=== PATIENT | male | born 1995 | race African-American/Black ===

== ENCOUNTER 2019-10-23 20:38 | Emergency (ER) | payer OTHER ==
[2019-10-23 20:44] VITALS: BMI 26.6
--- NOTE | 2019-10-23 20:50 | PDOC ---
Rapid Medical Evaluation Chief Complaint: Psychiatric Time Seen by Provider: 10/23/19 20:44 Medical Evaluation: Allergies Allergy/AdvReac Type Severity Reaction Status Date / Time No Known Allergies Allergy Verified 10/23/19 20:44 Vital Signs Temp Pulse Resp BP Pulse Ox 98.8 F 105 H 20 146/78 100 10/23/19 20:41 10/23/19 20:41 10/23/19 20:41 10/23/19 20:41 10/23/19 20:41 10/23/19 20:45 24 year old male c/o shortness of breath " i feel deana im going to pass out" reports similar symptoms for > 1 month. had an ekg at [facility]; patient alert ox3. A: near syncope?shortness of breath? P: ekg chest xray 10/23/19 20:51 10/23/19 20:53 Discharge Disposition - Diagnosis Shortness of breath, Near syncope - Referrals - Patient Instructions - Post Discharge Activity
--- NOTE | 2019-10-23 22:07 | PDOC ---
Attending Attestation - Resident Resident Name: Yuri Kent - ED Attending Attestation I have performed the following: I have examined & evaluated the patient, The case was reviewed & discussed with the resident, I agree w/resident's findings & plan - HPI HPI: 10/23/19 23:32 see resident hpi - Physicial Exam PE: 10/23/19 23:36 see resident exam - Medical Decision Making 10/23/19 23:36 24-year-old male with history of chest fluttering and near syncope Plan for labs including d-dimer EKG did show a sinus tachycardia on arrival with no delta waves and no acute ST segment elevations Following work-up plan for exercise restrictions and prompt cardiology follow-up Discharge - Discharge Information Problems reviewed: Yes Clinical Impression/Diagnosis: Shortness of breath, Near syncope, Palpitations - Follow up/Referral Referrals: Winnie Florez [Primary Care Provider] - - Patient Discharge Instructions - Post Discharge Activity
[2019-10-23] MEDS ORDERED: SODIUM CHLORIDE 0.9% 500 ML INFUS.BAG IV ONE (22:49)
--- NOTE | 2019-10-23 23:17 | PDOC ---
History of Present Illness - General Chief Complaint: Shortness of Breath Stated Complaint: DIFFICULTY BREATHING Time Seen by Provider: 10/23/19 20:44 History Source: Patient Exam Limitations: No Limitations - History of Present Illness Initial Comments: 10/23/19 23:20 24yo otherwise health male p/w feeling like he is going to pass out. Happened 3 months ago, saw PCP, got EKG which was reportedly normal, but no explanation. Since then, has had episodes of this feeling, lasting 10-15 minutes, associated with SOB, "flutter" feeling in chest, flushed. No LOC. No association with standing up. States he lost consciousness for a few seconds after a similar episode 7 years prior. ROS otherwise negative. Denies stressors or anxiety. PMH/PSH: none Meds: none Allergies: none Tob:none Etoh: none Rec drugs:none PCP: in [place] [facility] GENERAL/CONSTITUTIONAL: No fever or chills. No weakness. HEAD, EYES, EARS, NOSE AND THROAT: No change in vision. No ear pain or discharge. No sore throat. CARDIOVASCULAR: No chest pain. +shortness of breath RESPIRATORY: No cough, wheezing, or hemoptysis. GASTROINTESTINAL: No nausea, vomiting, diarrhea or constipation. GENITOURINARY: No dysuria, frequency, or change in urination. MUSCULOSKELETAL: No joint or muscle swelling or pain. No neck or back pain. SKIN: No rash NEUROLOGIC: No headache, vertigo, loss of consciousness, or change in strength/sensation. ENDOCRINE: No increased thirst. No abnormal weight change HEMATOLOGIC/LYMPHATIC: No anemia, easy bleeding, or history of blood clots. ALLERGIC/IMMUNOLOGIC: No hives or skin allergy. PE GENERAL: Awake, alert, and fully oriented, in no acute distress HEAD: No signs of trauma, normocephalic, atraumatic EYES: PERRLA, EOMI, sclera anicteric, conjunctiva clear ENT: hearing grossly normal, nares patent, oropharynx clear without exudates. Moist mucosa NECK: Normal ROM, supple, no lymphadenopathy, JVD, or masses LUNGS: No distress, speaks full sentences, clear to auscultation bilaterally HEART: Regular rate and rhythm, normal S1 and S2, no murmurs, rubs or gallops, peripheral pulses normal and equal bilaterally. ABDOMEN: Soft, nontender, normoactive bowel sounds. No guarding, no rebound. No masses EXTREMITIES : Normal inspection, Normal range of motion, no edema. No clubbing or cyanosis. NEUROLOGICAL: Cranial nerves II through XII grossly intact. Normal speech, normal gait, no focal sensorimotor deficits SKIN: Warm, Dry, normal turgor, no rashes or lesions noted Assessment and Plan 24yo otherwise health male p/w feeling like he is going to pass out. Vitals notable for tachycardia to 105. Differential includes pre-syncope, panic attack, hyperthyroidism, PE, cardiomyopathy EKG: sinus tachycardia CXR: wnl CBC, CMP, D-dimer, TSH 10/23/19 23:23 10/24/19 00:[address] Lundberg. Dispo: likely home with PCP and cardiology f/u. Past History - Medical History Allergies/Adverse Reactions: Allergies Allergy/AdvReac Type Severity Reaction Status Date / Time No Known Allergies Allergy Verified 10/23/19 20:44 COPD: No - Psycho-Social/Smoking History Smoking History: Never smoked - Substance Abuse Hx (Audit-C & DAST Scrn) How often the patient has a drink containing alcohol: Never Score: In Men: 4 or > Positive; In Women: 3 or > Positive: 0 Screen Result (Pos requires Nsg. Audit-10AR): Negative In the last yr the pt used illegal drug/Rx for NonMed reason: No Score: Yes response is considered Positive: 0 Screen Result (Positive result requires Nsg. DAST-10): Negative *Physical Exam - Vital Signs Last Vital Signs Temp Pulse Resp BP Pulse Ox 98.8 F 105 H 20 146/78 100 10/23/19 20:41 10/23/19 20:41 10/23/19 20:41 10/23/19 20:41 10/23/19 20:41 ED Treatment Course - LABORATORY CBC & Chemistry Diagram: 10/23/19 23:14 10/23/19 23:14 Discharge - Discharge Information Problems reviewed: Yes Clinical Impression/Diagnosis: Shortness of breath, Near syncope, Palpitations - Follow up/Referral Referrals: Winnie Florez [Primary Care Provider] - - Patient Discharge Instructions - Post Discharge Activity
[2019-10-23 23:41] LABS: HEMATOCRIT 44.5 % (35.4-49); HEMOGLOBIN 14.5 GM/dL (11.7-16.9); LYMPH % 22.5 % (8-40); MCH 28.4 pg (25.7-33.7); MCHC 32.6 g/dl (32.0-35.9); MEAN CELL VOLUME 87.2 fl (80-96); MEAN PLT VOLUME 8.6 fl (7.5-11.1); MONO % 7.5 % (3.8-10.2); PLATELET COUNT 276 K/MM3 (134-434); RBC 5.11 M/mm3 (4.00-5.60); RDW 13.6 % (11.9-15.9); WHITE BLOOD COUNT 7.5 K/mm3 (4.0-10.0)
[2019-10-24 00:14] LABS: ALBUMIN 4.7 g/dl (3.4-5.0); BILIRUBIN,TOTAL 0.5 mg/dL (0.2-1); BLOOD UREA NITROGEN 16.9 mg/dL (7-18); CALCIUM 9.6 mg/dL (8.5-10.1); CREATININE 1.2 mg/dL (0.55-1.3)
--- NOTE | 2019-10-24 00:31 | PDOC ---
*Physical Exam - Vital Signs Last Vital Signs Temp Pulse Resp BP Pulse Ox 97.2 F L 60 14 117/67 100 10/24/19 00:26 10/24/19 00:26 10/24/19 00:26 10/24/19 00:26 10/24/19 00:26 ED Treatment Course - LABORATORY CBC & Chemistry Diagram: 10/23/19 23:14 10/23/19 23:14 - ADDITIONAL ORDERS Additional order review: Laboratory Results 10/23/19 10/23/19 23:14 23:14 D-Dimer < 215 Sodium 138 Potassium 4.0 Chloride 104 Carbon Dioxide 28 Anion Gap 6 L BUN 16.9 Creatinine 1.2 Est GFR (CKD-EPI)AfAm 98.19 Est GFR (CKD-EPI)NonAf 84.72 Random Glucose 78 Calcium 9.6 Total Bilirubin 0.5 AST 18 ALT 21 Alkaline Phosphatase 59 Total Protein 8.0 Albumin 4.7 TSH 1.47 10/23/19 23:14 RBC 5.11 MCV 87.2 MCHC 32.6 RDW 13.6 MPV 8.6 Neutrophils % 66.0 Lymphocytes % 22.5 Monocytes % 7.5 Eosinophils % 3.0 Basophils % 1.0 - Medications Given in the ED: ED Medications Discontinued Medications Generic Name Dose Route Start Last Admin Trade Name Freq PRN Reason Stop Dose Admin Sodium Chloride 1,000 ml 10/23/19 22:49 10/23/19 23:21 Normal Saline - IV 10/23/19 22:50 1,000 ml ONCE ONE Administration Medical Decision Making - Medical Decision Making Patient signed out by Dr Kent 24yo M with no reported PMH presenting with episodes of feeling like he might pass out. CBC WBC 7.5 K/mm3 (4.0-10.0) 10/23/19 23:14 RBC 5.11 M/mm3 (4.00-5.60) 10/23/19 23:14 Hgb 14.5 GM/dL (11.7-16.9) 10/23/19 23:14 Hct 44.5 % (35.4-49) 10/23/19 23:14 MCV 87.2 fl (80-96) 10/23/19 23:14 MCH 28.4 pg (25.7-33.7) 10/23/19 23:14 MCHC 32.6 g/dl (32.0-35.9) 10/23/19 23:14 RDW 13.6 % (11.9-15.9) 10/23/19 23:14 Plt Count 276 K/MM3 (134-434) 10/23/19 23:14 MPV 8.6 fl (7.5-11.1) 10/23/19 23:14 Absolute Neuts (auto) 4.9 K/mm3 (1.5-8.0) 10/23/19 23:14 Neutrophils % 66.0 % (42.8-82.8) 10/23/19 23:14 Lymphocytes % 22.5 % (8-40) 10/23/19 23:14 Monocytes % 7.5 % (3.8-10.2) 10/23/19 23:14 Eosinophils % 3.0 % (0-4.5) 10/23/19 23:14 Basophils % 1.0 % (0-2.0) 10/23/19 23:14 Nucleated RBC % 0 % (0-0) 10/23/19 23:14 No leukocytosis or anemia CMP Sodium 138 mmol/L (136-145) 10/23/19 23:14 Potassium 4.0 mmol/L (3.5-5.1) 10/23/19 23:14 Chloride 104 mmol/L (98-107) 10/23/19 23:14 Carbon Dioxide 28 mmol/L (21-32) 10/23/19 23:14 Anion Gap 6 MMOL/L (8-16) L 10/23/19 23:14 BUN 16.9 mg/dL (7-18) 10/23/19 23:14 Creatinine 1.2 mg/dL (0.55-1.3) 10/23/19 23:14 Est GFR (CKD-EPI)AfAm 98.19 10/23/19 23:14 Est GFR (CKD-EPI)NonAf 84.72 10/23/19 23:14 Random Glucose 78 mg/dL (74-106) 10/23/19 23:14 Calcium 9.6 mg/dL (8.5-10.1) 10/23/19 23:14 Total Bilirubin 0.5 mg/dL (0.2-1) 10/23/19 23:14 AST 18 U/L (15-37) 10/23/19 23:14 ALT 21 U/L (13-61) 10/23/19 23:14 Alkaline Phosphatase 59 U/L (45-117) 10/23/19 23:14 Total Protein 8.0 g/dl (6.4-8.2) 10/23/19 23:14 Albumin 4.7 g/dl (3.4-5.0) 10/23/19 23:14 TSH 1.47 uIU/ml (0.358-3.74) 10/23/19 23:14 Electrolytes unremarkable Cr normal No transaminitis TSH normal Vital Signs Temp Pulse Resp BP Pulse Ox 98.1 F 63 20 127/69 100 10/24/19 00:34 10/24/19 00:34 10/24/19 00:34 10/24/19 00:34 10/24/19 00:34 Repeat VSS Labs, EKG, CXR unremarkable Cardiac follow-up given Due to concern for cardiac pathology, patient instructed to refrain from strenuous activity until cleared by cardiology. Patient voiced understanding. Return precautions Stable for discharge 10/24/19 00:56 Discharge - Discharge Information Problems reviewed: Yes Clinical Impression/Diagnosis: Shortness of breath, Near syncope, Palpitations Condition: Stable Disposition: HOME - Follow up/Referral Referrals: Winnie Florez [Primary Care Provider] - Keon Malin MD [Staff Physician] - - Patient Discharge Instructions Patient Printed Discharge Instructions: DI for Palpitations Additional Instructions: You came into the emergency department after feeling like you were going to faint. Lab work, Xray, and EKG did not indicate acute pathology. Eat and hydrate throughout the day to prevent dehydration and low blood sugar levels. We are referring you to a sorority supervisor to further evaluate your syncope. Call and make an appointment. Your workup is not complete until you do so. Do not perform strenuous activities (exercise, manual labor, etc) until you are cleared by cardiology. Immediate medical attention is required if: you pass out, have any chest pain, palpitations, shortness of breath, severe headaches, changes in vision, focal numbness or weakness, any severe abdominal pain, any black tarry stool, or any new or concerning symptoms. If you think you are having an emergency, call for emergency medical services or present to the emergency department right away. - Post Discharge Activity
[2019-10-24 00:35] VITALS: BP 127/69; PULSE 63; TEMP 98.1
--- NOTE | 2019-10-24 09:59 | EKG ---
Test Reason : Blood Pressure : / mmHG Vent. Rate : 107 BPM Atrial Rate : 107 BPM P-R Int : 158 ms QRS Dur : 088 ms QT Int : 334 ms P-R-T Axes : 063 089 030 degrees QTc Int : 445 ms SINUS TACHYCARDIA LEFT ATRIAL ENLARGEMENT LEFT VENTRICULAR HYPERTROPHY ABNORMAL ECG Confirmed by MD JAMIE, NADIA ([id number]) on 10/24/2019 9:59:09 AM Referred By: Confirmed By:NADIA AYALA MD
== END 2019-10-24 00:40 | disposition home or self-care (01) ==
LOC: JER 20:38
DX: R06.02 Shortness of breath (principal); R00.2 Palpitations
CPT/HCPCS: 36415; 71046-TC-FY; 80053; 84443; 85025; 85379; 93005; 93010; 99285-25